=== PATIENT | male | born 1955 | race Caucasian/White ===

== ENCOUNTER 2024-07-08 07:50 | Day surgery (SDC) | payer MEDICARE, BC ==
[2024-07-08 08:51] LABS: #Basophils 0.05 10x3/uL (0.0-0.2); #Monocytes 0.49 10x3/uL (0.0-1.1); #Neutrophils 3.99 10x3/uL (1.5-8.4); %Basophils 0.9 % (0.0-2.0); %Eosinophils 3.7 % (0.0-6.0); %Lymphocytes 12.5 % (18.0-47.0); %Neutrophils 73.5 % (40.0-75.0); Hematocrit 41.4 % (38.8-50.0); Hemoglobin 13.4 g/dL (13.5-17.5); Mean Corpuscular HGB CONC 32.4 g/dL (32.0-36.0); Mean Corpuscular Hemoglobin 26.9 pg (27.0-33.0); Mean Platelet Volume 10.9 fL (7.4-10.4); Platelet Count 206 10x3/uL (150-450); RBC Distribution Width 13.8 % (11.5-14.5); Red Blood Cell (RBC) Count 4.99 10x6/uL (4.32-5.72); White Blood Cell (WBC) Count 5.4 10x3/uL (3.5-10.5)
[2024-07-08 08:57] LABS: INR-International Normal Ratio 1.2; Prothrombin Time 12.9 sec (9.5-12.1)
[2024-07-08 09:01] LABS: Magnesium 1.7 mg/dL (1.6-2.6)
[2024-07-08 09:23] LABS: ALT (SGPT) 33 U/L (8-55); AST (SGOT) 30 U/L (5-34); Albumin 3.2 g/dL (3.4-4.8); Alkaline Phosphatase 104 U/L (40-110); Anion Gap 16 mmol/L (10-20); BUN (Urea Nitrogen) 25 mg/dL (8.4-25.7); Bilirubin, Total 1.5 mg/dL (0.2-1.2); Calc. Creatinine Clearance 0 mL/min (70-130); Calcium 9.8 mg/dL (7.8-10.44); Carbon Dioxide 22 mmol/L (23-31); Chloride 103 mmol/L (98-107); Estimated GFR 92; Glucose 116 mg/dL (80-115); Protein, Total 7.2 g/dL (5.8-8.1); Sodium 137 mmol/L (136-145)
== END 2024-07-08 11:50 | disposition home or self-care (01) ==
LOC: CSHSDC 07:50
PROVIDERS: ATTEND Specialist
DX: I48.19 Other persistent atrial fibrillation (principal); Z53.9 Procedure and treatment not carried out, unspecified reason; I70.219 Atherosclerosis of native arteries of extremities with intermittent claudication, unspecified extremity; I25.118 Atherosclerotic heart disease of native coronary artery with other forms of angina pectoris; E78.2 Mixed hyperlipidemia; I10 Essential (primary) hypertension; K21.9 Gastro-esophageal reflux disease without esophagitis; R73.03 Prediabetes; Z90.49 Acquired absence of other specified parts of digestive tract; Z79.899 Other long term (current) drug therapy; Z98.890 Other specified postprocedural states; Z79.82 Long term (current) use of aspirin
CPT/HCPCS: 80053; 83735; 85025; 85610; 93005; 93010

== ENCOUNTER 2024-11-03 11:03 | Outpatient (CLI) | payer MEDICARE, BC ==
[2024-11-03 11:52] LABS: Hematocrit 41.6 % (38.8-50.0); Hemoglobin 12.7 g/dL (13.5-17.5); Mean Corpuscular HGB CONC 30.5 g/dL (32.0-36.0); Mean Corpuscular Volume 82.1 fL (81.2-95.1); Platelet Count 161 10x3/uL (150-450); RBC Distribution Width 15.1 % (11.5-14.5); Red Blood Cell (RBC) Count 5.07 10x6/uL (4.32-5.72); White Blood Cell (WBC) Count 5.91 10x3/uL (3.5-10.5)
[2024-11-03 12:04] LABS: INR-International Normal Ratio 1.1; Prothrombin Time 11.9 sec (9.5-12.1)
[2024-11-03 12:08] LABS: Anion Gap 12 mmol/L (10-20); BUN (Urea Nitrogen) 21 mg/dL (8.4-25.7); Calc. Creatinine Clearance 0 mL/min (70-130); Calcium 9.4 mg/dL (7.8-10.44); Carbon Dioxide 27 mmol/L (23-31); Chloride 106 mmol/L (98-107); Estimated GFR 76; Glucose 106 mg/dL (80-115); Potassium 4.7 mmol/L (3.5-5.1); Sodium 140 mmol/L (136-145)
== END 2024-11-03 11:04 | disposition home or self-care (01) ==
LOC: CSHLAB 11:03
PROVIDERS: ATTEND Specialist
DX: Z01.812 Encounter for preprocedural laboratory examination (principal); R93.1 Abnormal findings on diagnostic imaging of heart and coronary circulation; I25.10 Atherosclerotic heart disease of native coronary artery without angina pectoris; Z95.1 Presence of aortocoronary bypass graft
CPT/HCPCS: 80048; 85027; 85610

== ENCOUNTER → 2024-11-04 | Day surgery (SDC) | payer MEDICARE, BC ==
[~2024-11-04] MED LIST: Adenosine 6 mg (2 mL) VIAL ONE; Ascorbic Acid 500 mg Chewable Tablet ONE; Aspirin Chewable 81 MG TAB ONE; FLU (Fluad Triv) TS24-25 (65UP)/MF59C/PF 45 MCG/0.5 ML Syringe IM ONE; Heparin 10,000 UNITS/ 10 ML VIAL ONE; Iopamidol 300 61% 100 ML VIAL FS ONE; Lidocaine 1% (PF) 30 ML VIAL ONE; Midazolam HCl 2 mg/2 ml Vial ONE; Nitroglycerin 50 MG/250 ML BOT 0 ML ONE; fentaNYL 50 mcg/mL 1 mL Vial ONE
[2024-11-04 13:39] VITALS: BP 127/60; TEMP 97.9
== END ==
LOC: CSHSDC 10:24
PROVIDERS: ATTEND Specialist
PROC: 4A023N7 Measurement of Cardiac Sampling and Pressure, Left Heart, Percutaneous Approach (ICD-10-PCS; principal; 2024-11-04)
DX: I25.118 Atherosclerotic heart disease of native coronary artery with other forms of angina pectoris (principal); I48.0 Paroxysmal atrial fibrillation; I70.209 Unspecified atherosclerosis of native arteries of extremities, unspecified extremity; I11.0 Hypertensive heart disease with heart failure; I50.32 Chronic diastolic (congestive) heart failure; E78.00 Pure hypercholesterolemia, unspecified; R73.03 Prediabetes; Z95.1 Presence of aortocoronary bypass graft; Z86.16 Personal history of COVID-19; Z90.49 Acquired absence of other specified parts of digestive tract; Z98.890 Other specified postprocedural states; Z79.82 Long term (current) use of aspirin; Z79.01 Long term (current) use of anticoagulants; Z79.84 Long term (current) use of oral hypoglycemic drugs; Z79.899 Other long term (current) drug therapy
CPT/HCPCS: 36215; 36225; 75710; 93459; C1760; C1769; J2250; J3010; 99152; 99153; J0153; J1644; Q9967